=== PATIENT | female | born 1960 | race Caucasian/White ===

== ENCOUNTER 2017-03-22 01:13 | Emergency (ER) | payer BC, OTHER ==
[2017-03-22] MEDS ORDERED: Sodium Chloride 0.9% 1,000 ML IV ONE (02:31)
[2017-03-22] MEDS ORDERED: Nitroglycerin 0.4 MG Tab.SL SL ONE (02:33)
[2017-03-22] MEDS ORDERED: Pantoprazole 40 MG Vial IVPUSH ONE (05:19)
--- NOTE | 2017-03-22 11:46 | ER ---
DATE SEEN: 03/22/2017 TIME SEEN: The patient was seen at 0210 hours. CHIEF COMPLAINT: Onset of pain. She had an episode of pain (5-6/10 in intensity) at 09:30 p.m. and recurrence at 10:15. It has been right sided. She has noted this was a "weird sensation" and 5-6/10 in intensity. The whole body "went numb," transiently in the left side of her chest. She had this dysesthesia and which was not made worse by getting up or moving around. She tried to get up and walk around and went back to bed and was unable to sleep, subsequently came into the hospital for further evaluation. If she laid on her right side or left side, it did not make any difference. She still felt "weird".She denied that she experienced chest pain. She denies recent episode of shingles, but she has been on valacyclovir prescription in the past. I did not ask her when was the last time she had shingles. Other medicine, fluticasone for allergy relief. She denies head, neck, or shoulder injury. Denies falls, or episodes of hypotension, diabetes, difficulty breathing, shortness of breath, pneumothorax, collapsed lung. Denies rheumatoid arthritis, GI bleed, or unusual weight loss or any stomach cancer. No history of hiatus hernia, chest wall trauma, psychiatric history, drug abuse, or referred pain from the spinal cord or spinal cord pain. No history of connective tissue disease and she is a nonsmoker. No history of COPD, heart failure, pericarditis, mitral valve disease, pneumothorax, gallbladder disease, aortic aneurysm, or pleuritis or chest wall syndrome - sickle cell, or pulmonary hypertension or GERD. The patient denies being lightheaded, diaphoretic, short of breath, syncope, near syncope symptoms, gastrointestinal symptoms, blood in the stool, black tarry stools, nausea, vomiting, reflux, constipation, or diarrhea. ALLERGIES: None. SOCIAL HISTORY: The patient is . No social stress. No psychiatric issues. REVIEW OF SYSTEMS: Negative except for noted above in the HPI. Most of the HPI is negative. Denies frequency, urgency, dysuria, or menstruation or any blood loss. Denies arthritis, rheumatism, or connective tissue disease. PHYSICAL EXAMINATION: VITAL SIGNS: Blood pressure 112/61, heart rate 63, blood pressure repeat is 92/59 after she used nitroglycerin. This came back to 105 to 110 over 70s and 60s. Respiratory rate 16, oxygen saturation 97% on room air, pulse oximetry 63, temperature is 36.8 degrees. The patient has a 24.8 kg/m2 BMI. GENERAL: Alert woman, in no acute distress except she has this chest discomfort. This is not reproducible or palpable on her chest wall. HEENT: PERRLA intact. Pharynx without abnormality. Nose: Dry mucosa. No cervical adenopathy. NECK: Supple. No thyromegaly. No masses. No bruits. LUNGS: Clear without rales, rhonchi, or rubs. HEART: S1, S2. No murmur. No gallop. No rub. ABDOMEN: Soft. Mild guarding. No abdominal discomfort. She has mild discomfort in the ribs in the subxiphoid region. Mild discomfort in subxiphoid abdominal area. Bowel sounds are normal. No CVA percussion tenderness. RECTAL: Not performed. LOWER EXTREMITIES: Without pedal edema. DERM: Negative. NEUROLOGICAL: Deep tendon reflexes normal. Cranial nerves 2 through 12 intact, oriented, gait appropriate. Muscle strength appropriate and no pronator drift. DIAGNOSTIC STUDIES: EKG x2 is normal with some computerized reading of low voltage in precordial leads, sinus rhythm. No ST elevation. Chest x-ray is without abnormality. LABORATORY FINDINGS: Normal hemoglobin and white count on CBC. Hemoglobin is 15.2, white count 6,200, PMNs 59, lymphocytes 30, monos 8, and platelets 259,000. D-dimer is normal and not elevated. INR is negative and PT is negative. Electrolytes normal with a normal potassium 3.7, AST 29, trace elevation. Troponin negative x2, two hours apart. Remainder of automated chemistry is negative. ASSESSMENT: Etiology for the patient's chest pain is indeterminate. Differential diagnosis includes, which I discussed with her, pericarditis, stomach cancer, gastrointestinal bleed, hypertension, weight loss, pneumonia, malignancy, chronic obstructive pulmonary disease, pleuritis, acute chest wall syndrome, pulmonary hypertension, hiatus hernia, rheumatism, trauma, psychiatric issues, substance abuse, spinal cord, [facility] PLAN: CRP and sedimentation rate pending. The patient dismissed with Vicodin 1 tab q.4-6 hours p.r.n. pain as needed. Follow up with doctor this week. I also told her I was reluctant to use narcotics but it is okay to have narcotics available if she has chest discomfort that is not relenting. She felt comfortable with this discussion. The patient dismissed to follow up with doctor next week or earlier if symptoms recurred or worse in the interval. DIAGNOSIS: Chest pain, etiology indeterminate. /[id number] RAJINDER/TREVIN HENNESSY
--- NOTE | 2017-03-23 09:29 | CR ---
INDICATION: Chest pain. CHEST: Portable AP upright view of the chest 03/22/2017. No comparisons were available. The heart, mediastinum, and bony thorax were unremarkable with no active infiltrate or effusion. Overlying EKG leads are noted. IMPRESSION: No acute process. MTDD
== END 2017-03-22 05:35 | disposition home or self-care (01) ==
LOC: FB.ED 01:13
DX: R07.9 Chest pain, unspecified (principal)
CPT/HCPCS: 36415; 71010; 80053; 82150; 84484; 85025; 85379; 85610; 85651; 86038; 93005; 96361; 96374; 99284; A9270; C9113; J7040